=== PATIENT | male | born 1970 | race Caucasian/White ===

== ENCOUNTER 2017-07-02 13:02 | Emergency (ER) | payer MEDICAID ==
[2017-07-02 13:11] VITALS: BP 110/87; PULSE 94; RESP 16; O2SAT 96
== END 2017-07-02 13:35 | disposition left against medical advice (07) ==
DX: Z53.21 Procedure and treatment not carried out due to patient leaving prior to being seen by health care provider (principal)

== ENCOUNTER 2017-07-18 19:59 | Emergency (ER) | payer MEDICAID ==
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
[2017-07-18 20:06] VITALS: BP 145/94; PULSE 92; RESP 16; TEMP 98.8; O2SAT 92
== END 2017-07-18 20:05 | disposition home or self-care (01) ==
DX: S01.112A Laceration without foreign body of left eyelid and periocular area, initial encounter (principal); Y04.0XXA Assault by unarmed brawl or fight, initial encounter; F17.200 Nicotine dependence, unspecified, uncomplicated

== ENCOUNTER 2017-09-04 01:23 | Emergency (ER) | payer SELFPAY ==
[2017-09-04 01:32] VITALS: TEMP 97.9
--- NOTE | 2017-09-04 01:52 | EDPHY ---
H & P Stated Complaint: Insomnia and PTSD HPI/ROS: HPI CHIEF COMPLAINT: Insomnia, anxiety, PTSD HISTORY OF PRESENT ILLNESS: Patient is a 47-year-old male, he is otherwise healthy does have significant past medical history for liver cirrhosis, additionally anxiety, and PTSD, presents emergency room 2 o'clock in the morning requesting to speak with mental health. He denies being suicidal or homicidal. Does not want hurt himself or anybody else he just wants resources for outpatient therapy for his PTSD. Past Medical History: Anxiety, PTSD liver cirrhosis, insomnia Past Surgical History: Denies recent surgical history Social History: Denies daily use of drugs alcohol tobacco. Family History: Noncontributory ROS REVIEW OF SYSTEMS: A comprehensive 10 point review of systems is otherwise negative aside from elements mentioned in the history of present illness. Exam Constitutional appears well nontoxic triage nursing summary reviewed, vital signs reviewed, awake/alert. Eyes normal conjunctivae and sclera, EOMI, PERRLA. HENT normal inspection, atraumatic, moist mucus membranes, no epistaxis, neck supple/ no meningismus, no raccoon eyes. Respiratory clear to auscultation bilaterally, normal breath sounds, no respiratory distress, no wheezing. Cardiovascular rate normal, regular rhythm, no murmur, no edema, distal pulses normal. Gastrointestinal soft, non-tender, no rebound, no guarding, normal bowel sounds, no distension, no pulsatile mass. Genitourinary no CVA tenderness. Musculoskeletal no midline vertebral tenderness, full range of motion, no calf swelling, no tenderness of extremities, no meningismus, good pulses, neurovascularly intact. Skin pink, warm, & dry, no rash, skin atraumatic. Neurologic awake, alert and oriented x 3, AAOx3, moves all 4 extremities equally, motor intact, sensory intact, CN II-XII intact, normal cerebellar, normal vision, normal speech. Psychiatric normal mood/affect. Not suicidal. Not homicidal. Heme/Lymph/Immune no lymphadenopathy. Differential Diagnosis: Includes but is not limited to in a particular order, mood disorder, bipolar disorder, acute psychosis, anxiety, PTSD Medical Decision Making: Plan for this patient he is alert and oriented, reasonable, does not want hurt himself or anybody else, would like resources will provide resources for mental health with him. Will have mental health see see him and provide outpatient resources. 0312: Mental health his given this patient outpatient resources. He will follow-up with them. He does state that he has anxiety is requesting anxiety medication. I recommend he follows up with his primary care doctor or mental health resources. Return precautions discussed. He understands return if he has worsening symptoms thoughts of harming self or anybody else, which she denied currently in the emergency room. Source: Patient - Personal History Current Tetanus/Diphtheria Vaccine: Yes Current Tetanus Diphtheria and Acellular Pertussis (TDAP): Yes - Medical/Surgical History Hx Asthma: No Hx Chronic Respiratory Disease: No Hx Diabetes: No Hx Cardiac Disease: No Hx Renal Disease: No Hx Cirrhosis: Yes Hx Alcoholism: Yes Hx HIV/AIDS: No Hx Splenectomy or Spleen Trauma: No Other PMH: PTSD/CIRRHOSIS/ETOH. kidney stones - Social History Smoking Status: Current some day smoker Constitutional: Initial Vital Signs Temperature (C) 36.6 C 09/04/17 01:28 Heart Rate 78 09/04/17 01:28 Respiratory Rate 18 09/04/17 01:28 Blood Pressure 112/87 H 09/04/17 01:28 O2 Sat (%) 94 09/04/17 01:28 O2 Delivery Mode Room Air Allergies/Adverse Reactions: Penicillins Allergy (Unknown, Verified 09/04/17 01:32) Home Medications: Medication Instructions Recorded NK [No Known Home Meds] 07/02/17 Departure - Departure Disposition: Home, Routine, Self-Care Clinical Impression: Anxiety Condition: Good Instructions: Anxiety (ED) Additional Instructions: 1. Please follow up with resources you were given today. 2. Return to the emergency room if you have worsening symptoms questions or concerns. Referrals: NONE *PRIMARY CARE P,. [Primary Care Provider] - As per Instructions
[2017-09-04 03:21] VITALS: BP 131/74; PULSE 74; RESP 16; O2SAT 96
== END 2017-09-04 03:22 | disposition home or self-care (01) ==
DX: F41.9 Anxiety disorder, unspecified (principal); F17.200 Nicotine dependence, unspecified, uncomplicated